=== PATIENT | female | born 1945 | race Caucasian/White ===

== ENCOUNTER → 2019-12-30 10:06 | Outpatient (BNVA) | payer MEDICARE, SELFPAY | PROVIDERS: Family Provider Nurse Practitioner Family; PCP Nurse Practitioner Family; Visit Provider Nurse Practitioner Family | DX: E11.9 Type 2 diabetes mellitus without complications (principal); E78.5 Hyperlipidemia, unspecified; I50.9 Heart failure, unspecified; I10 Essential (primary) hypertension; J06.9 Acute upper respiratory infection, unspecified | CPT/HCPCS: 80053; 80061; 84443; 85025 ==

== ENCOUNTER 2020-04-26 13:05 | Outpatient (CLI) | payer MEDICARE, SELFPAY ==
--- NOTE | 2020-04-26 14:15 | XR_ITS ---
WS: [id number] SCREENING DEXA SCAN [employer] CLINICAL INFORMATION: post menopausal COMPARISON: February 11, 2015 FINDINGS: The L1-L4 bone mineral density measures 0.825 g/cm2. This corresponds to a T score score of -3.0 and Z score of -1.8. Left femoral neck bone mineral density measures 0.697 g/cm2. This corresponds to a T score of -2.5 an d Z score of -1.2. Right femoral neck bone mineral density measures 0.671 g/cm2. This corresponds to a T score -2.7of an d Z score of -1.4. Mean femoral neck bone mineral density measures 0.684 g/cm2. This corresponds to a T score of -2.6 an d Z score of -1.3. XR/XR DEXA axial skeleton* 32135 IMPRESSION: Osteoporosis Patient's FRAX calculated 10 year probability for major osteoporotic fracture i s 34.9 % and osteoporotic hip fracture is 14.4%. Bone mineral density in the lumbar spine has decreased -3.6% and -1.2% in the f emoral necks since 2014.
== END 2020-04-26 13:06 | disposition home or self-care (01) ==
PROVIDERS: Family Provider Nurse Practitioner Family; PCP Nurse Practitioner Family; Visit Provider Nurse Practitioner
DX: Z78.0 Asymptomatic menopausal state (principal); M81.0 Age-related osteoporosis without current pathological fracture
CPT/HCPCS: 77080

== ENCOUNTER → 2020-05-06 11:47 | Outpatient (BNVA) | payer MEDICARE, SELFPAY | PROVIDERS: Family Provider Nurse Practitioner Family; PCP Nurse Practitioner Family; Visit Provider Nurse Practitioner Family | DX: E11.65 Type 2 diabetes mellitus with hyperglycemia (principal); Z79.899 Other long term (current) drug therapy; M06.9 Rheumatoid arthritis, unspecified; Z11.59 Encounter for screening for other viral diseases | CPT/HCPCS: 80053; 80076; 82565; 83036; 84443; 85025; 85651; 86140; 86704 ==

== ENCOUNTER → 2020-05-20 10:00 | Outpatient (BNVA) | payer MEDICARE, SELFPAY | PROVIDERS: Family Provider Nurse Practitioner Family; PCP Nurse Practitioner Family; Visit Provider Internal Medicine Rheumatology | DX: M05.79 Rheumatoid arthritis with rheumatoid factor of multiple sites without organ or systems involvement (principal); Z79.899 Other long term (current) drug therapy; M81.0 Age-related osteoporosis without current pathological fracture; Z79.52 Long term (current) use of systemic steroids | CPT/HCPCS: 99214 ==

== ENCOUNTER → 2020-09-01 09:57 | Outpatient (BNVA) | payer MEDICARE, SELFPAY | PROVIDERS: Family Provider Nurse Practitioner Family; PCP Nurse Practitioner Family; Visit Provider Nurse Practitioner Family | DX: I10 Essential (primary) hypertension (principal); I50.9 Heart failure, unspecified; M06.9 Rheumatoid arthritis, unspecified; E78.5 Hyperlipidemia, unspecified; E11.65 Type 2 diabetes mellitus with hyperglycemia; M25.561 Pain in right knee | CPT/HCPCS: 80053; 80061; 83036; 84443; 85025 ==

== ENCOUNTER → 2020-09-21 09:13 | Outpatient (BNVA) | payer MEDICARE, SELFPAY | PROVIDERS: Family Provider Nurse Practitioner Family; PCP Nurse Practitioner Family; Visit Provider Nurse Practitioner | DX: I10 Essential (primary) hypertension (principal); E87.6 Hypokalemia | CPT/HCPCS: 80048 ==

== ENCOUNTER → 2020-10-18 08:49 | Outpatient (BNVA) | payer MEDICARE, SELFPAY | PROVIDERS: Family Provider Nurse Practitioner Family; PCP Nurse Practitioner Family; Visit Provider Internal Medicine Rheumatology | DX: M05.79 Rheumatoid arthritis with rheumatoid factor of multiple sites without organ or systems involvement (principal); Z79.899 Other long term (current) drug therapy; M81.0 Age-related osteoporosis without current pathological fracture; Z79.52 Long term (current) use of systemic steroids | CPT/HCPCS: 99214 ==

== ENCOUNTER → 2020-12-13 09:18 | Outpatient (BNVA) | payer MEDICARE, SELFPAY | PROVIDERS: Family Provider Nurse Practitioner Family; PCP Nurse Practitioner Family; Visit Provider Nurse Practitioner Family | DX: E11.65 Type 2 diabetes mellitus with hyperglycemia (principal); E78.5 Hyperlipidemia, unspecified; I10 Essential (primary) hypertension; M06.9 Rheumatoid arthritis, unspecified | CPT/HCPCS: 80053; 80061; 83036; 84443; 85025 ==

== ENCOUNTER → 2021-01-31 08:09 | Outpatient (BNVA) | payer MEDICARE, SELFPAY | PROVIDERS: Family Provider Nurse Practitioner Family; PCP Nurse Practitioner Family; Visit Provider Internal Medicine Rheumatology | DX: Z79.899 Other long term (current) drug therapy (principal); M05.79 Rheumatoid arthritis with rheumatoid factor of multiple sites without organ or systems involvement | CPT/HCPCS: 36415; 80076; 82565; 85025; 86140 ==

== ENCOUNTER → 2021-02-08 08:45 | Outpatient (BNVA) | payer MEDICARE, SELFPAY | PROVIDERS: Family Provider Nurse Practitioner Family; PCP Nurse Practitioner Family; Visit Provider Internal Medicine Rheumatology | DX: M05.79 Rheumatoid arthritis with rheumatoid factor of multiple sites without organ or systems involvement (principal); Z79.899 Other long term (current) drug therapy; M81.0 Age-related osteoporosis without current pathological fracture | CPT/HCPCS: 99214 ==

== ENCOUNTER → 2021-03-11 08:51 | Outpatient (BNVA) | payer MEDICARE, SELFPAY | PROVIDERS: Family Provider Nurse Practitioner Family; PCP Nurse Practitioner Family; Visit Provider Nurse Practitioner Family | DX: E11.65 Type 2 diabetes mellitus with hyperglycemia (principal); E78.5 Hyperlipidemia, unspecified; I11.0 Hypertensive heart disease with heart failure; I50.9 Heart failure, unspecified; M06.9 Rheumatoid arthritis, unspecified | CPT/HCPCS: 80053; 80061; 83036; 84443; 85025 ==

== ENCOUNTER → 2021-03-30 08:41 | Outpatient (BNVA) | payer MEDICARE, SELFPAY | PROVIDERS: Family Provider Nurse Practitioner Family; PCP Nurse Practitioner Family; Visit Provider Nurse Practitioner Family | DX: I10 Essential (primary) hypertension (principal); E11.65 Type 2 diabetes mellitus with hyperglycemia; E78.5 Hyperlipidemia, unspecified | CPT/HCPCS: 80053; 85025 ==

== ENCOUNTER → 2021-05-24 08:36 | Outpatient (BNVA) | payer MEDICARE, SELFPAY | PROVIDERS: Family Provider Nurse Practitioner Family; PCP Nurse Practitioner Family; Visit Provider Internal Medicine Rheumatology | DX: M05.79 Rheumatoid arthritis with rheumatoid factor of multiple sites without organ or systems involvement (principal); Z79.899 Other long term (current) drug therapy; M81.0 Age-related osteoporosis without current pathological fracture; R05 Cough; Z71.89 Other specified counseling | CPT/HCPCS: 99214 ==

== ENCOUNTER → 2021-06-08 14:44 | Outpatient (BNVA) | payer MEDICARE, SELFPAY | PROVIDERS: Family Provider Nurse Practitioner Family; PCP Nurse Practitioner Family; Visit Provider Nurse Practitioner Family | DX: E11.65 Type 2 diabetes mellitus with hyperglycemia (principal); E78.5 Hyperlipidemia, unspecified; I10 Essential (primary) hypertension | CPT/HCPCS: 80053; 80061; 83036; 84443; 85025 ==

== ENCOUNTER → 2021-09-21 08:54 | Outpatient (BNVA) | payer MEDICARE, SELFPAY | PROVIDERS: Family Provider Nurse Practitioner Family; PCP Nurse Practitioner Family; Visit Provider Nurse Practitioner Family | DX: M05.79 Rheumatoid arthritis with rheumatoid factor of multiple sites without organ or systems involvement (principal); Z79.899 Other long term (current) drug therapy; E11.65 Type 2 diabetes mellitus with hyperglycemia; E78.5 Hyperlipidemia, unspecified | CPT/HCPCS: 80061; 80076; 82565; 83036; 84443; 85025; 86140 ==

== ENCOUNTER → 2021-11-09 08:38 | Outpatient (BNVA) | payer MEDICARE, SELFPAY | PROVIDERS: Family Provider Nurse Practitioner Family; PCP Nurse Practitioner Family; Visit Provider Internal Medicine Rheumatology | DX: M05.79 Rheumatoid arthritis with rheumatoid factor of multiple sites without organ or systems involvement (principal); Z79.899 Other long term (current) drug therapy; M81.0 Age-related osteoporosis without current pathological fracture; Z71.89 Other specified counseling | CPT/HCPCS: 99214 ==

== ENCOUNTER → 2021-11-25 09:05 | Outpatient (BNVA) | payer OTHER, SELFPAY | PROVIDERS: Family Provider Nurse Practitioner Family; PCP Nurse Practitioner Family; Visit Provider Nurse Practitioner Family | DX: E11.65 Type 2 diabetes mellitus with hyperglycemia (principal); E78.5 Hyperlipidemia, unspecified | CPT/HCPCS: 80053; 80061; 83036; 84443; 85025 ==

== ENCOUNTER → 2022-01-24 09:00 | Outpatient (BNVA) | payer OTHER, SELFPAY | PROVIDERS: Family Provider Nurse Practitioner Family; PCP Nurse Practitioner Family; Visit Provider Nurse Practitioner Family | DX: J40 Bronchitis, not specified as acute or chronic (principal); R05.9 Cough, unspecified | CPT/HCPCS: 71046 ==

== ENCOUNTER 2022-03-03 13:06 | Outpatient (CLI) | payer MEDICARE, SELFPAY ==
--- NOTE | 2022-03-03 13:32 | XR_ITS ---
WS: [id number] Left leg including the tibia and fibula, AP and lateral views, 03/03/2022 Clinical Data: M79.605 - Pain in left leg Comparison: None. Findings: No fractures or dislocations are seen. The tibia and fibula are intact. The soft tissues are normal. XR/XR tibia fibula LT 2V 10840 Impression: Negative for fracture.
--- NOTE | 2022-03-03 13:32 | XR_ITS ---
WS: [email or web address] Left hip, AP and frog-leg views, 03/03/2022 Clinical Data: M79.605 - Pain in left leg Comparison: None. Findings: No fractures or dislocations are seen. The left hip shows no erosion, narrowing, sclerosis or femoral head fragmentation. There is a small left acetabular lip.. The soft tissues are not remarkable. The adjacent pelvis is normal. XR/XR hip LT 2-3V wo/w pel* [id number] Impression: Mild osteoarthritis of the left hip. Tonnis classification: grade 1: sclerosis of femoral head and acetabulum or sli ght joint space narrowing or slight lipping at joint margins of the left hip.
--- NOTE | 2022-03-03 13:32 | XR_ITS ---
WS: [email or web address] Left ankle, 3 views, 03/03/2022 Clinical Data: M79.605 - Pain in left leg Comparison: None. Findings: No fractures or dislocations are seen. The ankle mortise is normal. The talus and calcaneus are unrem arkable. No soft tissue swelling over the medial or lateral malleolus is seen. There is a soft tissue calcification anterior to the distal left tibia which may be from a soft tissu e injury. There is a plantar spur and an Achilles spur. XR/XR ankle LT min 3V* [id number] Impression: Negative left ankle.
--- NOTE | 2022-03-03 13:32 | XR_ITS ---
WS: [email or web address] Left knee, 3 views, 03/03/2022 Clinical Data: M79.605 - Pain in left leg Comparison: None. Findings: No fractures or dislocations are seen. There is medial joint compartment narrowing with a small spur of the medial femoral condyle. There is an anterior superior spur of the left patella. The soft tissu es are unremarkable. XR/XR knee LT 3V* [id number] Impression: Mild osteoarthritis of the left knee. Kellgren-Andrew Classification: grade 2 (minimal): definite osteophytes and p ossible joint space narrowing
--- NOTE | 2022-03-03 13:32 | XR_ITS ---
WS: [email or web address] Left femur and thigh, AP and lateral views, 03/03/2022 Clinical Data: M79.605 - Pain in left leg Comparison: None. Findings: No fractures or dislocations are seen. The soft tissues are normal. The visualized knee shows left pa tellar spurs. XR/XR femur LT min 2V* [id number] Impression: Negative left femur and thigh.
== END 2022-03-03 13:07 | disposition home or self-care (01) ==
PROVIDERS: PCP Nurse Practitioner Family; Visit Provider Nurse Practitioner Family
DX: M79.605 Pain in left leg (principal); M25.572 Pain in left ankle and joints of left foot; M17.12 Unilateral primary osteoarthritis, left knee; M16.12 Unilateral primary osteoarthritis, left hip
CPT/HCPCS: 73502; 73552; 73562; 73590; 73610

== ENCOUNTER → 2022-05-04 12:40 | Outpatient (BNVA) | payer MEDICARE, SELFPAY | PROVIDERS: PCP Nurse Practitioner Family; Referring Provider Nurse Practitioner Family; Visit Provider Specialist | DX: M70.62 Trochanteric bursitis, left hip (principal); M16.12 Unilateral primary osteoarthritis, left hip | CPT/HCPCS: 73502; 99204 ==

== ENCOUNTER → 2022-05-09 08:27 | Outpatient (BNVA) | payer MEDICARE, SELFPAY | PROVIDERS: PCP Nurse Practitioner Family; Visit Provider Internal Medicine Rheumatology | DX: M05.79 Rheumatoid arthritis with rheumatoid factor of multiple sites without organ or systems involvement (principal); Z79.899 Other long term (current) drug therapy; M81.0 Age-related osteoporosis without current pathological fracture; Z71.89 Other specified counseling | CPT/HCPCS: 99214 ==

== ENCOUNTER → 2022-05-10 11:20 | Outpatient (BNVA) | payer MEDICARE, SELFPAY | PROVIDERS: PCP Nurse Practitioner Family; Visit Provider Nurse Practitioner | DX: R07.89 Other chest pain (principal); M48.54XA Collapsed vertebra, not elsewhere classified, thoracic region, initial encounter for fracture; J98.11 Atelectasis | CPT/HCPCS: 71046; 72072 ==

== ENCOUNTER 2022-05-19 06:00 | Outpatient (RCR) | payer MEDICARE, SELFPAY | END 2022-06-18 23:59 | disposition home or self-care (01) | LOC: APT 06:00 | PROVIDERS: PCP Nurse Practitioner Family; Referring Provider Specialist; Visit Provider Specialist | DX: M70.72 Other bursitis of hip, left hip (principal) | CPT/HCPCS: 97110; 97140; 97163 ==

== ENCOUNTER 2022-05-23 | Outpatient (CLI) | payer MEDICARE, SELFPAY | END 2022-05-23 23:59 | disposition home or self-care (01) | LOC: RAD 06-19 17:00 | PROVIDERS: PCP Nurse Practitioner Family; Visit Provider Nurse Practitioner | DX: E11.65 Type 2 diabetes mellitus with hyperglycemia (principal); E55.9 Vitamin D deficiency, unspecified; R53.83 Other fatigue | CPT/HCPCS: 80053; 80061; 82043; 82306; 82607; 83036; 85025 ==

== ENCOUNTER 2022-06-19 06:00 | Outpatient (RCR) | payer MEDICARE, SELFPAY | END 2022-07-19 23:59 | disposition home or self-care (01) | LOC: APT 06:00 | PROVIDERS: PCP Nurse Practitioner Family; Visit Provider Specialist | DX: M70.62 Trochanteric bursitis, left hip (principal) | CPT/HCPCS: 97110; 97140 ==

== ENCOUNTER → 2022-08-21 08:35 | Outpatient (BNVA) | payer MEDICARE, SELFPAY | PROVIDERS: PCP Nurse Practitioner; Visit Provider Nurse Practitioner | DX: E11.65 Type 2 diabetes mellitus with hyperglycemia (principal); E53.8 Deficiency of other specified B group vitamins | CPT/HCPCS: 80053; 80061; 82607; 83036 ==

== ENCOUNTER → 2022-09-04 09:38 | Outpatient (BNVA) | payer MEDICARE, SELFPAY | PROVIDERS: PCP Nurse Practitioner; Visit Provider Internal Medicine Rheumatology | DX: M05.79 Rheumatoid arthritis with rheumatoid factor of multiple sites without organ or systems involvement (principal); Z79.899 Other long term (current) drug therapy; Z71.89 Other specified counseling; M81.0 Age-related osteoporosis without current pathological fracture | CPT/HCPCS: 99214 ==

== ENCOUNTER → 2022-09-21 08:53 | Outpatient (BNVA) | payer MEDICARE, SELFPAY | PROVIDERS: PCP Nurse Practitioner; Visit Provider Nurse Practitioner | DX: E53.8 Deficiency of other specified B group vitamins (principal); M81.0 Age-related osteoporosis without current pathological fracture; I10 Essential (primary) hypertension; J98.01 Acute bronchospasm; M05.79 Rheumatoid arthritis with rheumatoid factor of multiple sites without organ or systems involvement; E78.5 Hyperlipidemia, unspecified; E55.9 Vitamin D deficiency, unspecified; I50.9 Heart failure, unspecified; J30.89 Other allergic rhinitis; M19.90 Unspecified osteoarthritis, unspecified site; E11.65 Type 2 diabetes mellitus with hyperglycemia; R05.3 Chronic cough; M79.18 Myalgia, other site; R05.9 Cough, unspecified | CPT/HCPCS: 87486; 87581; 87633 ==

== ENCOUNTER → 2022-10-30 08:08 | Outpatient (BNVA) | payer MEDICARE, SELFPAY | PROVIDERS: PCP Nurse Practitioner; Visit Provider Nurse Practitioner | DX: E53.8 Deficiency of other specified B group vitamins (principal) | CPT/HCPCS: 82607 ==

== ENCOUNTER → 2022-12-04 08:14 | Outpatient (BNVA) | payer MEDICARE, SELFPAY | PROVIDERS: PCP Nurse Practitioner; Visit Provider Nurse Practitioner | DX: Z79.899 Other long term (current) drug therapy (principal); E11.65 Type 2 diabetes mellitus with hyperglycemia; E55.9 Vitamin D deficiency, unspecified | CPT/HCPCS: 80053; 80061; 82306; 83036; 85025 ==

== ENCOUNTER → 2023-02-21 10:34 | Outpatient (BNVA) | payer MEDICARE, SELFPAY | PROVIDERS: PCP Nurse Practitioner; Visit Provider Internal Medicine Rheumatology | DX: M05.79 Rheumatoid arthritis with rheumatoid factor of multiple sites without organ or systems involvement (principal); Z79.899 Other long term (current) drug therapy; Z71.89 Other specified counseling; M81.0 Age-related osteoporosis without current pathological fracture | CPT/HCPCS: 99214 ==

== ENCOUNTER → 2023-03-02 10:15 | Outpatient (BNVA) | payer MEDICARE, SELFPAY | PROVIDERS: PCP Nurse Practitioner; Visit Provider Nurse Practitioner | DX: E53.8 Deficiency of other specified B group vitamins (principal); E11.65 Type 2 diabetes mellitus with hyperglycemia; M05.79 Rheumatoid arthritis with rheumatoid factor of multiple sites without organ or systems involvement; Z79.899 Other long term (current) drug therapy | CPT/HCPCS: 80048; 80076; 82565; 82607; 83036; 85025; 86140 ==

== ENCOUNTER → 2023-05-23 08:52 | Outpatient (BNVA) | payer MEDICARE, SELFPAY | PROVIDERS: PCP Nurse Practitioner; Visit Provider Nurse Practitioner | DX: E11.65 Type 2 diabetes mellitus with hyperglycemia (principal) | CPT/HCPCS: 80053; 80061; 82607; 83036; 83540; 85025 ==

== ENCOUNTER → 2023-05-30 10:03 | Outpatient (BNVA) | payer MEDICARE, SELFPAY | PROVIDERS: PCP Nurse Practitioner; Visit Provider Internal Medicine Rheumatology | DX: M05.79 Rheumatoid arthritis with rheumatoid factor of multiple sites without organ or systems involvement (principal); Z71.89 Other specified counseling; Z79.899 Other long term (current) drug therapy; M81.0 Age-related osteoporosis without current pathological fracture | CPT/HCPCS: 36415; 82728; 82746; 83540; 83550; 99214 ==

== ENCOUNTER → 2023-08-20 08:34 | Outpatient (BNVA) | payer MEDICARE, SELFPAY | PROVIDERS: PCP Nurse Practitioner; Visit Provider Nurse Practitioner | DX: M81.0 Age-related osteoporosis without current pathological fracture (principal); I10 Essential (primary) hypertension; J42 Unspecified chronic bronchitis; M05.79 Rheumatoid arthritis with rheumatoid factor of multiple sites without organ or systems involvement; E55.9 Vitamin D deficiency, unspecified; E53.8 Deficiency of other specified B group vitamins; E78.5 Hyperlipidemia, unspecified; I50.9 Heart failure, unspecified; E11.65 Type 2 diabetes mellitus with hyperglycemia; M19.90 Unspecified osteoarthritis, unspecified site | CPT/HCPCS: 80053; 83036; 85025 ==

== ENCOUNTER 2023-08-24 14:29 | Emergency (ER) | payer MEDICARE, SELFPAY ==
[2023-08-24 14:37] VITALS: BP 132/75; PULSE 70; RESP 16; TEMP 37.1; O2SAT 97; BMI 28.3
--- NOTE | 2023-08-24 14:42 | XR_ITS ---
WS: [email or web address] EXAMINATION: XR ankle RT min 3V* [id number] REASON FOR EXAM: trauma COMPARISON: None available. ORDER DATE: 08/24/2023 2:42 PM TECHNIQUE: 3 views of the right ankle were obtained. X-RAY FINDINGS: A cast has been placed and superimposes the bimalleolar fracture with some degree of displacement and comminution at each of the fracture sites. There is diffusely edema. IMPRESSION: Immobilized fractures of the right ankle.
--- NOTE | 2023-08-24 15:17 | W.ED.EXTPRO ---
HPI - Extremity Problem General: Chief complaint: Extremity Injury, Lower Stated complaint: right ankle injury Time Seen by Provider: 08/24/23 14:42 Source: patient Mode of arrival: wheelchair History of Present Illness: 78-year-old female presents emergency room with right ankle pain. Earlier this week she was seen in [place] after she stumbled that she had a bimalleolar right ankle fracture a stirrup and posterior splint combination were placed and wrapped with an Tacho wrap she has had increased swelling and has severe pain she has been using tramadol no further injury what had been noted no falls or other issues other than the swelling. She has been trying to elevate the leg. MD Complaint: extremity pain and joint pain Onset (ago): day(s) Pain Consistency: constant Location: right and lower extremity (Ankle) Quality: aching Radiation: distal Relieving factors: elevation and medication Exacerbating factors: nothing Associated symptoms: Deny arthralgias, chest pain, fever(s), myalgias, rash or short of breath Review of Systems Const: Denies: fever(s), chills, fatigue or malaise ENMT: Denies: throat pain, ear or mastoid pain, nasal discharge or nasal congestion Card: Denies: chest pain Resp: Denies: dyspnea, productive cough or non-productive cough GI: Denies: abdominal pain, nausea, vomiting, hematemesis, coffee ground emesis, diarrhea, constipation, bloating, hematochezia or melena : Denies: flank pain, difficulty voiding, dysuria, urinary frequency or urinary urgency Musc: Reports: extremity swelling, joint pain and joint swelling Skin/Breast: Denies: rash PFSH ED PFSH: Medical History Bronchitis CHF (congestive heart failure) Chronic bronchitis Controlled diabetes mellitus with hyperglycemia, without long-term current use of insulin Dyslipidemia Environmental and seasonal allergies High risk medication use Hypertension Immunization counseling Osteoarthritis Osteoporosis Post menopausal syndrome Rheumatoid arthritis Seropositive rheumatoid arthritis of multiple sites Seropositive rheumatoid arthritis of multiple sites Surgical History History of partial hysterectomy History of umbilical hernia repair May, S/P cholecystectomy Family History Mother Hypertension Cancer renal Social History Smoking and tobacco status: never smoked Second hand smoke exposure: Yes Smoking risk assessment/counseling performed?: No Alcohol intake: never Desire information about alcohol rehabilitation?: No Counseling given: No Substance/Drug Use: never Desire information about substance/drug rehabilitation?: No Counseling given: No Adopted: No Caregiver/support person: No Lives independently: Yes Housing: House Marital status: Number of children: 3 Highest education level completed: High School Graduate service: No Current occupational status: retired Pets and animals: Yes Do you think of yourself as: Straight/Heterosexual Current gender identity: Female Physical Exam Const: GENERAL APPEARANCE: cooperative and comfortable ORIENTATION/CONSCIOUSNESS: Yes awake, Yes oriented to person, Yes oriented to place and Yes oriented to time HENMT: COMMON NORMALS: normocephalic, atraumatic and hearing grossly normal bilaterally HEAD & SCALP: normocephalic and atraumatic Resp: COMMON NORMALS: normal respiratory effort, No retractions, No use of accessory muscles and clear to auscultation bilaterally AUSCULTATION: clear to auscultation bilaterally Cardio: COMMON NORMALS: regular rate, regular rhythm and No murmurs present (Cardio) RATE: regular rate RHYTHM: regular rhythm GI: COMMON NORMALS: Soft to palpation and No hepatosplenomegaly present AUSCULTATION: Yes normoactive bowel sounds PALPATION: Yes Soft to palpation, No Tenderness to palpation present (GI), No Guarding due to palpation present (GI) and Yes No hepatosplenomegaly present Extremity: OTHER: Significant swelling proximal to a posterior/stirrup splint on the right lower leg some bruising proximally. Sensation and distal pulses normal. Neuro: SENSORIUM/ORIENTATION: Yes oriented to person, Yes oriented to place and Yes oriented to time Skin: COMMON NORMALS: no rashes or lesions noted GENERAL SKIN EXAM: no rashes or lesions noted Course Vital Signs: Vital signs: Vital Signs Temperature 98.8 F 08/24/23 14:37 Pulse Rate 70 08/24/23 14:37 Respiratory Rate 16 08/24/23 14:37 Blood Pressure 132/75 08/24/23 14:37 Pulse Oximetry 97 08/24/23 14:37 Oxygen Delivery Me thod Room Air 08/24/23 14:37 MDM - Extremity (Nontraumatic) Medical Decision Making X-ray shows bimalleolar fracture with some displacement but is acceptable at this point there is no significant dislocation. Patient had good relief of his hip tubes horcu splint was removed. Splint was remade for her [place] wrapped again but not as tight. Give her hydrocodone for pain she has an appointment on Sunday which is in [address] Mondrgaon encouraged her to keep that that is reasonably soon and advised her even then they probably will not be able to do surgery for a time until the swelling begins to reduce. Recheck if she has worsening or change problems. We did do a venous duplex which was negative. Medical Records I reviewed the patient's medical records. Lab Data I reviewed the patient's lab results. All radiology interpretation(s) finalized by discharge Discharge Plan Discharge Patient Disposition: Home Clinical Impression: Bimalleolar fracture of right ankle Condition: Stable Prescriptions: New hydrocodone-acetaminophen 5-325 mg tablet 1 tab PO Q6H PRN (Reason: pain) Qty: 20 0RF Discontinued tramadol 50 mg tablet 50 mg PO TID PRN (Reason: pain) Qty: 90 2RF No Action (DME) Walker [id number] See Rx Instructions .Route .MEDSUPPLY Qty: 1 0RF Rx Instructions: weight 174# height 5'5 will need 99 months albuterol sulfate [ProAir HFA] 90 mcg/actuation HFA aerosol inhaler 2 puff INHALATION QID PRN (Reason: shortness of breath or wheezing) Qty: 6.7 2RF alendronate [Fosamax] 70 mg tablet 70 mg PO .Q7days Qty: 4 2RF carvedilol [Coreg] 3.125 mg tablet 1.562 mg PO BID 30 Days Qty: 30 2RF Rx Instructions: must administer with a meal/food celecoxib [Celebrex] 100 mg capsule 100 mg PO BID Qty: 60 2RF cyanocobalamin (vitamin B-12) 1,000 mcg/mL solution 1,000 mcg IM .monthly Qty: 1 2RF furosemide 20 mg tablet 20 mg PO BID 30 Days Qty: 60 2RF metformin 500 mg tablet 500 mg PO BID 30 Days Qty: 60 2RF prednisone 10 mg tablet See Rx Instructions .ROUTE .COMPLEX Qty: 30 1RF Dose Instruction: TAKE 1 TABLET BY MOUTH EVERY DAY FOR 3-5 DAYS NEEDED FOR joint pain flare. watch blood sugars Rx Instructions: TAKE 1 TABLET BY MOUTH EVERY DAY FOR 3-5 DAYS NEEDED FOR joint pain flare. watch blood sugars diclofenac sodium 1 % gel See Rx Instructions .ROUTE .COMPLEX Qty: 100 1RF Dose Instruction: apply TWO grams TO affected area FOUR TIMES DAILY NEEDED Rx Instructions: apply TWO grams TO affected area FOUR TIMES DAILY NEEDED potassium chloride 20 mEq Tablet Extended Release 20 meq PO QAM leflunomide 20 mg tablet 20 mg PO QAM amlodipine 10 mg tablet 10 mg PO QAM Diovan 320 mg tablet 320 mg PO QAM fluticasone propionate 50 mcg/actuation spray,suspension 1 spray intranasal BID PRN (Reason: Allergic Symptoms) Rx Instructions: administer into each nostril Tricor 145 mg tablet 145 mg PO QAM Symbicort 80-4.5 mcg/actuation HFA aerosol inhaler 2 puff inhalation BID PRN (Reason: Shortness Of Breath) cholecalciferol (vitamin D3) 50 mcg (2,000 unit) capsule 50 mcg PO QAM Rinvoq 15 mg tablet extended release 24 hr 15 mg PO QAM Discharge Orders: Discharge ED (Routine); Ordered 08/24/23 Ordered By: Henrique Ortiz Referrals: Ronni Noguera, [employer]PRESENT[employer]IVE[employer] [Primary Care Provider] - Discharge Diet: Usual diet Discharge Activity: Limit activity as instructed Patient Instructions: Ankle Fracture (ED), Opioid Safety, Pain Management Activity Restrictions/Additional Instructions: You are seen today for pain related to the swelling of your previous ankle fracture. We agree splinted your foot will allow clear bar and swelling. Keep the appointment with orthopedics/podiatry as previously scheduled try to elevate the foot is much as possible you can also use ice to help control swelling. Coding Level of Care Code ED Manager Media Relations for Amie No
--- NOTE | 2023-08-24 15:42 | USCV_ITS ---
Tawny Corcoran (Bushra) Age: 78 Gender: F : 1945 Exam Date: 08/24/2023 15:57 Ordering Phys: Henrique Ortiz DO Technologist: [place] [facility] [place]: PROCEDURES: Venous duplex imaging was performed in only the right lower extremity. The following venous structures were evaluated: common femoral vein, profunda vein, proximal portion of the greater saphenous vein, superficial femoral vein, and the popliteal vein. In addition, the posterior tibial and peroneal trunk were evaluated. CONCLUSIONS No evidence of right lower extremity DVT. Reynold Robertson MD (Electronically Signed) Final Date: 24 August 2023 16:24 S
== END 2023-08-24 17:03 | disposition home or self-care (01) ==
PROVIDERS: Emergency Provider Family Medicine; PCP Nurse Practitioner
DX: S82.841A Displaced bimalleolar fracture of right lower leg, initial encounter for closed fracture (principal); Z77.22 Contact with and (suspected) exposure to environmental tobacco smoke (acute) (chronic); I11.0 Hypertensive heart disease with heart failure; I50.9 Heart failure, unspecified; E11.9 Type 2 diabetes mellitus without complications; E78.5 Hyperlipidemia, unspecified; W01.0XXA Fall on same level from slipping, tripping and stumbling without subsequent striking against object, initial encounter; M79.89 Other specified soft tissue disorders
CPT/HCPCS: 73610; 93971; 99284

== ENCOUNTER → 2023-08-28 10:27 | Outpatient (BNVA) | payer MEDICARE, SELFPAY | PROVIDERS: PCP Nurse Practitioner; Visit Provider Podiatrist Foot & Ankle Surgery | DX: S82.841A Displaced bimalleolar fracture of right lower leg, initial encounter for closed fracture; M06.9 Rheumatoid arthritis, unspecified; I50.9 Heart failure, unspecified; E11.65 Type 2 diabetes mellitus with hyperglycemia; W01.0XXA Fall on same level from slipping, tripping and stumbling without subsequent striking against object, initial encounter; Z79.84 Long term (current) use of oral hypoglycemic drugs | CPT/HCPCS: 99204 ==

== ENCOUNTER → 2023-08-29 08:58 | Outpatient (BNVA) | payer MEDICARE, SELFPAY | PROVIDERS: PCP Nurse Practitioner; Visit Provider Internal Medicine Rheumatology | DX: M05.79 Rheumatoid arthritis with rheumatoid factor of multiple sites without organ or systems involvement (principal); Z79.899 Other long term (current) drug therapy; Z71.89 Other specified counseling; M81.0 Age-related osteoporosis without current pathological fracture | CPT/HCPCS: 99214 ==

== ENCOUNTER → 2023-09-03 14:29 | Outpatient (BNVA) | payer MEDICARE, SELFPAY | PROVIDERS: PCP Nurse Practitioner; Visit Provider Internal Medicine | DX: R07.9 Chest pain, unspecified (principal); I45.10 Unspecified right bundle-branch block; Z01.818 Encounter for other preprocedural examination; R01.1 Cardiac murmur, unspecified; I50.9 Heart failure, unspecified; I11.0 Hypertensive heart disease with heart failure; E78.5 Hyperlipidemia, unspecified; E11.9 Type 2 diabetes mellitus without complications; E11.65 Type 2 diabetes mellitus with hyperglycemia; I45.2 Bifascicular block | CPT/HCPCS: 93005; 99204 ==

== ENCOUNTER 2023-09-11 12:51 | Outpatient (CLI) | payer MEDICARE, SELFPAY ==
--- NOTE | 2023-09-11 13:30 | USCV_ITS ---
NiloTawny coyle (Bushra) Age: 78 Gender: F : 1945 Exam Date: 09/11/2023 13:24 Ordering Phys: Clinton Rutherford M.D ([email or web address]) Technologist: SEDRICK [place] [facility] [place]: MURMUR BP: 128 / 70 HR: 65 Rhythm: Sinus Technical Quality: Adequate MEASUREMENTS (Male / Female) Normal Values 2D ECHO LVOT Diameter 2.0 cm LV Ejection Fraction MOD 2C 69.0 % LV Ejection Fraction 2C AL 68.0 % LA Diameter 4.3 cm LA Width 4.2 cm LA Height 5.3 cm RA Width 4.3 cm RA Height 4.4 cm Aorta at Sinotubular Diameter 3.3 cm IVC Diameter 1.3 cm M-MODE Aortic Annulus Diameter 2.9 cm LA Ao Ratio MM 1.5 MV E Point Septal Separation 0.4 cm DOPPLER AV Peak Velocity 554.0 cm/s LVOT Peak Velocity 121.0 cm/s AV Area Cont Eq vti 0.7 cm squared AV Area Cont Eq pk 0.7 cm squared MV Peak Velocity 150.0 cm/s MV Area PHT 3.2 cm squared Mitral E to A Ratio 0.8 MV E' Velocity 62.0 cm/s Mitral E to MV E' Ratio 14.1 Mitral E to LV E' Lateral Ratio 11.4 Mitral E to LV E' Septal Ratio 18.7 TR Peak Velocity 333.0 cm/s TR Peak Gradient 44.4 mmHg TR Mean Velocity 240.6 cm/s TR Mean Gradient 26.1 mmHg TR Velocity Time Integral 133.3 cm TV Peak E Velocity 53.0 cm/s Right Atrial Pressure 3.0 mmHg Pulmonary Artery Systolic Pressu 47.4 mmHg PV Peak Velocity 204.0 cm/s RV Acceleration Time 0.1 s RV Ejection Time 0.4 s RV AcT/ET 0.2 FINDINGS Left Ventricle Left ventricle is normal in size. Moderate to severe left ventricular hypertrophy seen. LV systolic function is normal with EF of 60 to 65%. No regional wall motion abnormalities are seen. Grade 1 diastolic dysfunction Right Ventricle Normal in size and function Right Atrium Normal in size Left Atrium Severely dilated Mitral Valve Structurally normal mitral valve. Mild mitral regurgitation Aortic Valve Aortic valve is thickened and calcified. Severe aortic stenosis with aortic valve area of 0.67 cm2 and mean gradient across aortic valve of 55 mmHg. Tricuspid Valve Mild tricuspid regurgitation. RVSP is 45 to 50 mmHg. This is consistent with moderate pulmonary hypertension Pulmonic Valve Not well visualized Pericardium Normal Aorta Normal in size IVC Appears to be normal CONCLUSIONS LV systolic function is normal with EF of 60-65%. Grade 1 diastolic dysfunction Severely dilated left atrium Critical aortic stenosis with aortic valve area of 0.67cm2 and mean gradient across aortic valve of 55mmHg Mild tricuspid regurgitation Moderate pulmonary hypertension No comparison studies are available. Clinton Rutherford MD (Electronically Signed) Final Date: 11 September 2023 14:12 S
== END 2023-09-11 12:52 | disposition home or self-care (01) ==
PROVIDERS: PCP Nurse Practitioner; Visit Provider Internal Medicine
DX: R01.1 Cardiac murmur, unspecified (principal); I08.2 Rheumatic disorders of both aortic and tricuspid valves; I27.20 Pulmonary hypertension, unspecified
CPT/HCPCS: 93306

== ENCOUNTER → 2023-09-13 09:19 | Outpatient (BNVA) | payer MEDICARE, SELFPAY | PROVIDERS: PCP Nurse Practitioner; Visit Provider Podiatrist Foot & Ankle Surgery | DX: S82.841A Displaced bimalleolar fracture of right lower leg, initial encounter for closed fracture; M06.9 Rheumatoid arthritis, unspecified; I50.9 Heart failure, unspecified; E11.65 Type 2 diabetes mellitus with hyperglycemia; W01.0XXA Fall on same level from slipping, tripping and stumbling without subsequent striking against object, initial encounter; Z79.84 Long term (current) use of oral hypoglycemic drugs | CPT/HCPCS: 27808; 73610; 99213; 99215 ==

== ENCOUNTER 2023-09-18 08:36 | Outpatient (CLI) | payer MEDICARE, SELFPAY ==
[2023-09-18] VITALS (10 sets, daily range): BP systolic 109–195; BP diastolic 64–85; PULSE 66–87; RESP 13–24; TEMP 36.8; O2SAT 93–96; BMI 28.9
--- NOTE | 2023-09-18 09:00 | XACV_ITS ---
Ht: 165 cm Wt: 79 kg BSA: 1.92 m2 Gender: Female : 1945 Any Known Allergies: No known allergies Exam Priority: Routine Indication(s): - Severe aortic stenosis by Echo - Surgical clearance - Evaluation for possible valve surgery Procedure(s): Procedure Description: Diagnostic procedure Procedure Description: Left Heart Catheterization Procedure Description: Right Heart Catheterization Procedure Description: O2 saturation Procedure Description: Miscellaneous Procedure Description: ACT Procedure Description: Coronary Angiography Diagnostic Cath Status: Elective Diagnostic Findings * INDICATION: Critical aortic stenosis. * Left Main is very short. No significant disease.. * Left Anterior Descending has mild diffuse luminal irregularities.. * Circumflex has no significant disease. Gives rise to OM 1 that has proximal mild to moderate 30 to 40% stenosis.. * Right heart cath findings: Normal right and left sided cardiac pressures Mean RA pressure: 8 mmHg RV pressure: 42 / 0 / 8 mmHg PA pressure: 44/18/28 mmHg Mean PCW: 10 mmHg TP mmHg Cardiac output: 3.45 L/min PVR: 5.2 Wood units. Mild precapillary pulmonary hypertension . * Aortic valve study: Aortic valve area: 0.42 cm2 Mean gradient: 63 mmHg Critical aortic valve stenosis. * Proximal Right Coronary Artery: minimal 30% stenosis, CONNIE: 3 flow. * Coronary angiography shows right dominance. Conclusions 1. Nonobstructive coronary artery disease. 2. Critical aortic stenosis. 3. Normal right and left-sided cardiac pressures. 4. Mild precapillary pulmonary hypertension. Recommendations * Patient will be evaluated by heart valve clinic in [place] next week for valve replacement work up. * Outpatient cardiology follow up in 1-2 weeks. Pressures Phase:Rest AO : 151 / 86 ( 115 ) @ 12:07:00 PM / ( 0 ) @ 12:27:00 PM 197 / 82 ( 128 ) @ 12:27:00 PM 197 / 82 ( 127 ) @ 12:27:00 PM LV : 250 / -18 / 10 @ 12:27:00 PM 251 / -16 / 12 @ 12:27:00 PM RV : 42 / 0 / 9 @ 11:44:00 AM PA : 44 / 18 ( 28 ) @ 11:42:00 AM RA : a wave = 11 v wave = 9 mean = 8 @ 11:44:00 AM PCW : a wave = 13 v wave = 13 mean = 10 @ 11:42:00 AM O2 Content Phase:Rest PA : O2 Content O2: 64.9 @ 12:27:00 PM Saturations Phase:Rest AO : 94 @ 12:07:00 PM PA : 65 @ 12:27:00 PM Cardiac Output Phase:Rest Wendy : 3 @ 11:46:54 AM Wendy Cardiac Index: 2 @ 11:46:54 AM Flow Phase:Rest Qp : 3 @ 11:46:54 AM Qs : 3 @ 11:46:54 AM Valves Phase:DefaultPhase AV : 54.0 @ 11:46:54 AM 54.0 @ 11:46:54 AM AV Mean Gradient: 63.0 @ 11:46:54 AM 63.0 @ 11:46:54 AM AV Flow: 149 @ 11:46:54 AM AV Area: 0.4 @ 11:46:54 AM AV Area Index: 0.23 @ 11:46:54 AM Clinical Evaluation EBL: 5mL-10mL Procedural Details Procedure Consent Obtained. Pre-Procedure Time Out. Identified patient by full name and date of as verbalized by the patient/guarantor. Does the consent match the physician's order: Yes. Accurate & Complete Informed Consent: Yes. Inpatient/Outpatient History & Physical on Chart: Yes. If H&P is completed, is and addenduem needed: No; If yes, is the addendum complete: N/A. Visualize and Verify Site with Patient/Guarantor: N/A. Relevant Radiology Images available: N/A. The risks, benefits, and alternatives of sedation and/or procedure were discussed by physician. The patient agrees to continue. Admit Source: Out Patient. Physician notified. Physician arrived. Procedure started. [facility] Clinical Fraility Score: 4: Vulnerable. 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 Chest Pain Symptom Assessment: Atypical Angina. Cardiovascular Instability: No, stable. Correct patient, site and procedure confirmed by cath team. Current diagnosis: Chest Pain; Severe Aortic stenosis; Surgical Clearance. PERRLA. Strong, equal hand nursing resident bilaterally. Lungs clear x 5 lobes. IV Site on Arrival: 20 gauge in the left anticubital. IV Site on Arrival: 20 gauge in the right anticubital. IV Fluids: 0.9% NaCl at KVO. 0 mL infused prior to laboratory cureman. Pre Procedural Pulses: bilateral radial was 3+. Pre Procedural Pulses: left dorsalis pedis was 2+. Pre Procedural Pulses: left posterior tibial was 2+. Right lower extremity is casted; unable to assess lower pulses at this time. Oxygen started at 0liters/min via nasal canula; in preparation for RHC. right groin was prepped with chloroprep then draped in the usual sterile fashion. right radial was prepped with chloroprep then draped in the usual sterile fashion. right brachial was prepped with chloroprep then draped in the usual sterile fashion. Baseline sample Acquired. HR: 53 BPM. Physician scrubbed in. Immediate Pre-Procedure Time Out. Correct Patient: Yes; Correct Procedure: Yes; Correct Site: Yes; Correct Patient Position: Yes; Correct Supplies: Yes; Dried Flammable Prep: Yes; Blood Products Available: N/A;. Lidocaine 1% infiltrated to the right brachial. Guidewire access through the brachial venous access made by . Rozet-Justice MON catheter inserted. [place] wire inserted. Unable to advance swan. [place] wire removed. 0.25 swan wire inserted. Swant advance to RA postion. Rozet wire removed. Oximetry samples were obtained. Normal venous range: 60-85%. Normal arterial range: 95-100%. Pressure measurements obtained. ABG drawn and sent with respiratory therapy. Rozet-Justice out. Lidocaine 1% infiltrated to the right radial. Arterial access obtained. Nitro was given IA through the needle. Wire and needle out. MD Holding pressure. MD aborting radial attempt. Attempting to gain access in the right femoral approach. A Manual Compression was successful obtaining hemostatsis at the Right Brachial Vein insertion site. TR band placed to the needle radial access. 10 ml of air placed in the band. Both radial artery site and brachil vein site on the right side are hemostatic and free of s/s of hematoma at this time. Lidocaine 1% infiltrated to the right groin. Arterial access obtained with micropuncture set. Wire and needle out. MD holding pressure. Arterial access obtained with micropuncture set using ultrasound. ABG drawn and sent with respiratory therapy. A 5 [place]enezuel[place] JL4 catheter in over wire. Multiple views taken of left coronary artery. Oxygen started at 2liters/min via nasal canula. Multiple views taken of left coronary artery. Catheter removed over the exchange wire. A 5 v[place] JR4 catheter in over wire. Multiple views taken of right coronary artery. Catheter removed over the exchange wire. A 5 venezuel[place] AL1 catheter in over glide wire. Wire removed. Catheter aspirated and flushed by MD. Wire reinserted. Wire and catheter advanced across the Aortic Valve. Glidewire removed. Exchange wire inserted. AL 1 catheter removed over the wire. 6 fr rivka catheter inserted over the exchange wire. Exchange wire removed. Gradient taken: LV 251/-17,12; AO 197/82(127); Mean: 63mmHg, Peak to Peak: 54mmHg, SEP: 23sec/min; HR: 70 BPM; SpO2: 97%. [place] Catheter out over the wire. Physician review of cine films. ACT drawn. Results 153 seconds. Therapeutic limits - pre-heparin administration 90-150 seconds and monitoring heparin during a vascular procedure >250 seconds. Physican scrubbed out. A Suture was successful obtaining hemostatsis at the Right Femoral artery insertion site. Sheath(s) sutured into position with 2-0 silk and sterile 4x4's and Op-site applied over the site. No oozing or signs and symptoms of hematoma noted. Arterial sheath flushed and connected to tranducer and pressure bag with heparinized saline. Post Procedure: Pulses reassessed and unchanged. PERRLA. Strong, equal hand nursing resident bilaterally. No VTE prophylaxis required. Medication waste: Lidocaine-1 ml Nitro- 49.8 mg Versed- 1 mg Fentanyl- 75 mcg Hydralazine 10 mg. Vital chart was stopped. Total IV fluids: 50 mL. Fluoro: 138:00. Contrast type used: Omnipaque 300 mg/mL, 150 mL bottle. [id number]. Post-op diagnosis: Critical Aortic Stenosis. Complications: None. Estimated blood loss: 5mL-10mL. Responsiveness - Normal response to verbal stimuli; alert and oriented, PERRLA. Airway - Unaffected, no intervention required; spontaneous ventilation. Circulation: W/N/L, pulses unchanged. Nausea/Vomiting: No. Procedure completed. Patient transferred by bed to CPRU. Current Diagnosis : Chest Pain. Access Site Site: Right Brachial Vein Sheath Size: 6 Fr Hemostasis Method: Manual Compression Hemostasis Success: Successful Site: Right Femoral artery Sheath Size: 6 Fr Hemostasis Method: Suture Hemostasis Success: Successful Procedure Medications Start: 10:29 AM Stop: 10:29 AM Medication: Versed 1 mg and Fentanyl 25 mcg Amount: 1 Route: I.V. Start: 10:49 AM Stop: 10:49 AM Medication: Nitrogylcerin Amount: 200 mcg Route: I.A. Start: 11:15 AM Stop: 11:15 AM Medication: Heparin Amount: 2000 units Route: I.V. Start: 11:23 AM Stop: 11:23 AM Medication: Heparin Amount: 1000 units Route: I.V. Start: 11:35 AM Stop: 11:35 AM Medication: Hydralazine Amount: 10 mg Route: I.V. I, the attending physician, have reviewed and verified all procedure medications. Yes, all medications given per verbal order History/Risk Factors Hypertension: Yes Dyslipidemia: Yes Peripheral Arterial Disease (PAD): No Myocardial Infarction (IN): No Obesity: No Renal Disease: No Tobacco Use: Never Prior Interventions PCI: No CABG: No Valve Surgery: No Report Signatures Finalized by Clinton Rutherford MD on 09/19/2023 12:19 PM
[2023-09-18 09:22] LABS: Basophils % 0.6 %; Eosinophils # 0.1 10^3/uL (0.0-0.8); Eosinophils % 2.3 %; Hematocrit 37.7 % (36-47); Lymphocytes % 18.4 %; Mean Corpuscular HGB Conc 31.6 g/dL (30-55); Mean Corpuscular Hemoglobin 28.4 pg (27-33); Mean Platelet Volume 9.4 fL (7.4-10.4); Monocytes # 0.5 10^3/uL (0.2-0.9); Monocytes % 10.1 %; Neutrophils # 3.53 10^3/uL (1.8-7.7); Neutrophils % 67.5 %; Nucleated Red Blood Cells % 0 %; Platelet Count 300 10^3/cmm (157-399); Red Blood Count 4.19 10^6/uL (3.85-5.65); Red Cell Distribution Width 13.6 % (12.1-15.1); White Blood Count 5.23 10^3/uL (3.29-11.43)
[2023-09-18] MEDS: diphenhydrAMINE 50 mg Capsule PO (09:28)
[2023-09-18] MEDS: aspirin 325 mg Tablet PO (09:28)
[2023-09-18 09:47] LABS: INR 0.95 (0.8-1.2)
[2023-09-18 09:51] LABS: Anion Gap 12.4 (5-19); Blood Urea Nitrogen 21 mg/dL (8-23); Calcium 9.7 mg/dL (8.5-10.5); Carbon Dioxide 32 mmol/L (22-29); Chloride 99 mmol/L (98-107); Glucose 118 mg/dL (65-115); Osmolality Calculated 294 mOsm/kg (285-295); Potassium 3.4 mmol/L (3.5-5.1); Sodium 140 mmol/L (136-145)
--- NOTE | 2023-09-18 10:28 | W.PM.OPSUD ---
Surgery/Procedure H&P Update DATE OF PROCEDURE: September 18, 2023 DATE H&P PERFORMED: 09/13/23 H&P UPDATE INFORMATION: I have reviewed H&P completed within last 30 days, I have examined patient prior to procedure and No changes to prior documentation PREOP DIAGNOSIS: Severe aortic stenosis PRIMARY INDICATION FOR PROCEDURE: Severe aortic stenosis PLANNED PROCEDURE: Operation Date: 09/18/23 10:00 Proposed Procedures p [facility] 69993,R93.1,I35.0(Bilateral) - Clinton Rutherford M.D Possible percutaneous coronary intervention PATIENT REASSESSED PRIOR TO SEDATION, WITH NO CHANGE NOTED: Yes PHYSICAL EXAM: alert, oriented x 3, clear to auscultation bilaterally and regular rate & rhythm AIRWAY EVAL/ANESTHESIA PLAN: normal airway, ASA III, Local Anesthesia, Risks, benefits & alternatives of sedation and/or procedure discussed and Patient agrees to continue as planned ADDITIONAL INFORMATION: Moderate sedation
[2023-09-18 11:08] LABS: Alveolar-Arterial Oxygen Gradi 4.1 mmHg (5-10); Arterial Blood Gas Hematocrit 30.3 % (37-47); Blood Gas Operator Identificat AO; Blood Gas Sample Site Not specified; Blood Gas Sample Type Arterial; Carboxyhemoglobin 1.7 %THgb (0.4-20.1); Methemoglobin 0.7 % (0.4-1.5); Oxygen Device ROOM AIR; Total Hemoglobin 9.9 g/dL (12-16)
[2023-09-18 11:10] LABS: Arterial Blood Gas Hematocrit 11.1 % (37-47); Blood Gas Operator Identificat PA; Blood Gas Sample Site Not specified; Carboxyhemoglobin 1.9 %THgb (0.4-20.1); HGB O2 Sat 62.6 % (95-100); Methemoglobin 1.6 % (0.4-1.5); Oxygen Device ROOM AIR; Total Hemoglobin 3.6 g/dL (12-16)
[2023-09-18 11:22] LABS: Blood Gas Sample Type MixedVenous
--- NOTE | 2023-09-18 12:45 | PC.NURSE ---
Patient arrives to [facility] from [facility] at 1235 with a right radial TR-band and a right arterial sheath. No hematomas noted.
--- NOTE | 2023-09-18 16:13 | PC.NURSE ---
Patient has a right arterial sheath. The sheath was pulled at 1335. Hemostatis is obtained at 1335. Manual pressure is held x 20 minutes. Vitals are stable throughout. No hematoma is noted. A 4 x 4 and tegaderm dressing is applied. Right radial TR-band: 2ml's of air is removed at 1400, 2ml's of air is removed at 1504, 2ml's of air is removed at 1535, 2ml's of air is removed at 1600, 2ml's of air is removed at 1615. TR-band is removed at 1630 and a 2 x 2 and tegaderm dressing is applied. No hematoma is noted. Patient tolerated well.
== END 2023-09-18 19:36 | disposition home or self-care (01) ==
LOC: CCL 08:37 → CSU 12:28
PROVIDERS: PCP Nurse Practitioner; Visit Provider Internal Medicine
DX: I25.10 Atherosclerotic heart disease of native coronary artery without angina pectoris (principal); I27.20 Pulmonary hypertension, unspecified; I35.0 Nonrheumatic aortic (valve) stenosis; E78.5 Hyperlipidemia, unspecified; I11.0 Hypertensive heart disease with heart failure; I50.9 Heart failure, unspecified; E11.65 Type 2 diabetes mellitus with hyperglycemia; M81.0 Age-related osteoporosis without current pathological fracture; M06.9 Rheumatoid arthritis, unspecified; I07.1 Rheumatic tricuspid insufficiency
CPT/HCPCS: 36415; 80048; 82810; 85025; 85347; 85610; 93460; 96361; 96365; 99152; 99153; C1751; C1769; C1887; C1894; J0360; J1644; J2250; J3010; J3490; J7030; Q0163; Q9967

== ENCOUNTER → 2023-09-25 09:15 | Outpatient (BNVA) | payer MEDICARE, SELFPAY | PROVIDERS: PCP Nurse Practitioner; Visit Provider Podiatrist Foot & Ankle Surgery | DX: S82.841A Displaced bimalleolar fracture of right lower leg, initial encounter for closed fracture; W01.0XXA Fall on same level from slipping, tripping and stumbling without subsequent striking against object, initial encounter; M06.9 Rheumatoid arthritis, unspecified; I50.9 Heart failure, unspecified; E11.65 Type 2 diabetes mellitus with hyperglycemia; Z79.84 Long term (current) use of oral hypoglycemic drugs | CPT/HCPCS: 73610; 99213 ==

== ENCOUNTER → 2023-09-26 08:51 | Outpatient (BNVA) | payer MEDICARE, SELFPAY | PROVIDERS: PCP Nurse Practitioner; Visit Provider Nurse Practitioner Family | DX: I35.0 Nonrheumatic aortic (valve) stenosis (principal) | CPT/HCPCS: 36415; 80048; 99214 ==

== ENCOUNTER → 2023-10-04 08:59 | Outpatient (BNVA) | payer MEDICARE, SELFPAY | PROVIDERS: PCP Nurse Practitioner; Visit Provider Podiatrist Foot & Ankle Surgery | DX: S82.841A Displaced bimalleolar fracture of right lower leg, initial encounter for closed fracture; W01.0XXA Fall on same level from slipping, tripping and stumbling without subsequent striking against object, initial encounter; M06.9 Rheumatoid arthritis, unspecified; I50.9 Heart failure, unspecified; E11.65 Type 2 diabetes mellitus with hyperglycemia; Z79.84 Long term (current) use of oral hypoglycemic drugs; Z46.89 Encounter for fitting and adjustment of other specified devices; S82.401D Unspecified fracture of shaft of right fibula, subsequent encounter for closed fracture with routine healing; X58.XXXD Exposure to other specified factors, subsequent encounter | CPT/HCPCS: 73610; 97760; 99213; L4361 ==

== ENCOUNTER 2023-10-04 11:13 | Outpatient (CLI) | payer MEDICARE, SELFPAY | END 2023-10-04 11:14 | disposition home or self-care (01) | LOC: SPT 11:14 | PROVIDERS: PCP Nurse Practitioner; Visit Provider Podiatrist Foot & Ankle Surgery | DX: Z46.89 Encounter for fitting and adjustment of other specified devices (principal); S82.401D Unspecified fracture of shaft of right fibula, subsequent encounter for closed fracture with routine healing; X58.XXXD Exposure to other specified factors, subsequent encounter | CPT/HCPCS: 97760; 99213; L4361 ==

== ENCOUNTER → 2023-10-23 12:42 | Outpatient (BNVA) | payer MEDICARE, SELFPAY | PROVIDERS: PCP Nurse Practitioner; Visit Provider Nurse Practitioner Family | DX: Z95.0 Presence of cardiac pacemaker (principal); I11.0 Hypertensive heart disease with heart failure; I50.9 Heart failure, unspecified | CPT/HCPCS: 99214 ==

== ENCOUNTER → 2023-10-25 09:12 | Outpatient (BNVA) | payer MEDICARE, SELFPAY | PROVIDERS: PCP Nurse Practitioner; Visit Provider Podiatrist Foot & Ankle Surgery | DX: S82.841A Displaced bimalleolar fracture of right lower leg, initial encounter for closed fracture; W01.0XXA Fall on same level from slipping, tripping and stumbling without subsequent striking against object, initial encounter; M06.9 Rheumatoid arthritis, unspecified; I50.9 Heart failure, unspecified; E11.65 Type 2 diabetes mellitus with hyperglycemia; Z79.84 Long term (current) use of oral hypoglycemic drugs | CPT/HCPCS: 73610; 99213 ==

== ENCOUNTER 2023-10-29 14:46 | Outpatient (CLI) | payer MEDICARE, SELFPAY ==
--- NOTE | 2023-10-29 15:15 | USCV_ITS ---
Nilo Tawny (Bushra) Age: 78 Gender: F : 1945 Exam Date: 10/29/2023 15:05 Ordering Phys: Clinton Rutherford M.D ([email or web address]) Technologist: CT [place] [facility] [place]: tavr BP: 127 / 72 HR: 59 Rhythm: Sinus Technical Quality: Adequate MEASUREMENTS (Male / Female) Normal Values 2D ECHO LVOT Diameter 2.0 cm LV Ejection Fraction MOD 2C 55.4 % LV Ejection Fraction 2C AL 57.5 % LA Diameter 4.7 cm M-MODE MV E Point Septal Separation 0.6 cm DOPPLER AV Peak Velocity 160.0 cm/s LVOT Peak Velocity 116.0 cm/s AV Area Cont Eq vti 2.6 cm squared AV Area Cont Eq pk 2.4 cm squared MV E' Velocity 7.0 cm/s TR Peak Velocity 244.3 cm/s TR Peak Gradient 23.9 mmHg TV Peak E Velocity 72.0 cm/s Right Atrial Pressure 3.0 mmHg Pulmonary Artery Systolic Pressu 26.9 mmHg PV Peak Velocity 157.0 cm/s FINDINGS Left Ventricle Left ventricle is normal in size. LV systolic function is normal with EF of 55 to 60%. No regional wall motion abnormalities are seen. Grade 1 diastolic dysfunction. Right Ventricle Normal in size and function Right Atrium Normal in size. Pacemaker lead is seen Left Atrium Dilated Mitral Valve Structurally normal mitral valve. Mild mitral regurgitation. Aortic Valve Bioprosthetic aortic valve. No significant stenosis or regurgitation. Mean gradient across the aortic valve 6 mmHg. Tricuspid Valve Mild tricuspid regurgitation. Pulmonary artery systolic pressure is normal. Pulmonic Valve Not well-visualized Pericardium Normal Aorta Normal in size IVC Appears to be normal CONCLUSIONS LV systolic function is normal with EF of 55 to 60%. Grade 1 diastolic dysfunction Pacemaker lead is seen. Left atrial dilation Mild mitral regurgitation Bioprosthetic aortic valve seen. No significant stenosis or regurgitation Mild tricuspid regurgitation Compared to prior echocardiogram from 09/11/2023, patient has bioprosthetic aortic valve now with no significant stenosis across aortic valve. Clinton Rutherford MD (Electronically Signed) Final Date: 31 October 2023 10:18 S
== END 2023-10-29 14:47 | disposition home or self-care (01) ==
LOC: RAD 14:47
PROVIDERS: PCP Nurse Practitioner; Visit Provider Internal Medicine
DX: Z95.3 Presence of xenogenic heart valve (principal); Z95.2 Presence of prosthetic heart valve; I08.1 Rheumatic disorders of both mitral and tricuspid valves
CPT/HCPCS: 93306

== ENCOUNTER → 2023-11-08 09:11 | Outpatient (BNVA) | payer MEDICARE, SELFPAY | PROVIDERS: PCP Nurse Practitioner; Visit Provider Podiatrist Foot & Ankle Surgery | DX: S82.841A Displaced bimalleolar fracture of right lower leg, initial encounter for closed fracture; M06.9 Rheumatoid arthritis, unspecified; I50.9 Heart failure, unspecified; E11.65 Type 2 diabetes mellitus with hyperglycemia; Z79.84 Long term (current) use of oral hypoglycemic drugs; W01.0XXA Fall on same level from slipping, tripping and stumbling without subsequent striking against object, initial encounter | CPT/HCPCS: 73610; 99213 ==

== ENCOUNTER 2023-11-15 12:43 | Emergency (ER) | payer MEDICARE, SELFPAY ==
[2023-11-15 12:56] VITALS: BP 139/66; PULSE 60; TEMP 36.6; O2SAT 94; BMI 30.2
--- NOTE | 2023-11-15 13:05 | ECG_ITS ---
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 Measurements Intervals [place] Rate: 60 P: 166 VT: 194 QRS: -32 QRSD: 165 T: 90 QT: 476 QTc: 476 Interpretive Statements ELECTRONIC ATRIAL PACEMAKER LEFT AXIS DEVIATION [QRS AXIS < -30] RIGHT BUNDLE BRANCH BLOCK [120+ ms QRS DURATION, UPRIGHT V1, 40+ ms S IN I/aVL/V4/V5/V6] MODERATE T-WAVE ABNORMALITY, CONSIDER LATERAL ISCHEMIA [-0.1+ mV T-WAVE IN I/aVL/V5/V6] Compared to ECG 09/03/2023 14:39:22 Left-axis deviation now present T-wave abnormality now present Possible ischemia now present Sinus rhythm no longer present Left anterior fascicular block no longer present Left ventricular hypertrophy no longer present ST (T wave) deviation no longer present Electronically Signed On 11-15-2023 13:28:34 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 [id number]
--- NOTE | 2023-11-15 13:08 | XRR_ITS ---
PROCEDURE INFORMATION: Exam: XR Chest Exam date and time: 11/15/2023 1:26 PM Age: 78 years old Clinical indication: Pain; Angina pectoris; Additional info: Cp TECHNIQUE: Imaging protocol: Radiologic exam of the chest. Views: 1 view. COMPARISON: CR XR chest 2V* [id number] 05/10/2022 11:20 AM FINDINGS: Tubes, catheters and devices: Dual-chamber pacemaker in place. Lungs: Unremarkable. No consolidation. Pleural spaces: Unremarkable. No pleural effusion. No pneumothorax. Heart/Mediastinum: Transcatheter aortic valve replacement. Bones/joints: Unremarkable. XR/XR chest 1V portable [id number] IMPRESSION: No acute findings.
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
== END 2023-11-15 14:20 | disposition home or self-care (01) ==
PROVIDERS: Emergency Provider Nurse Practitioner Family; PCP Nurse Practitioner
DX: S29.011A Strain of muscle and tendon of front wall of thorax, initial encounter (principal); Z79.84 Long term (current) use of oral hypoglycemic drugs; Z77.22 Contact with and (suspected) exposure to environmental tobacco smoke (acute) (chronic); Z95.0 Presence of cardiac pacemaker; E11.9 Type 2 diabetes mellitus without complications; I11.0 Hypertensive heart disease with heart failure; I50.9 Heart failure, unspecified; E78.5 Hyperlipidemia, unspecified; V49.20XA Unspecified car occupant injured in collision with unspecified motor vehicles in nontraffic accident, initial encounter
CPT/HCPCS: 71045; 93005; 99284

== ENCOUNTER → 2023-11-20 13:31 | Outpatient (BNVA) | payer MEDICARE, SELFPAY | PROVIDERS: PCP Nurse Practitioner; Visit Provider Nurse Practitioner | DX: E11.65 Type 2 diabetes mellitus with hyperglycemia (principal) | CPT/HCPCS: 80053; 83036; 85025 ==

== ENCOUNTER → 2023-11-22 08:32 | Outpatient (BNVA) | payer MEDICARE, SELFPAY | PROVIDERS: PCP Nurse Practitioner; Visit Provider Podiatrist Foot & Ankle Surgery | DX: S82.401A Unspecified fracture of shaft of right fibula, initial encounter for closed fracture (principal); S82.841A Displaced bimalleolar fracture of right lower leg, initial encounter for closed fracture; W01.0XXA Fall on same level from slipping, tripping and stumbling without subsequent striking against object, initial encounter; M06.9 Rheumatoid arthritis, unspecified; I50.9 Heart failure, unspecified; E11.65 Type 2 diabetes mellitus with hyperglycemia; Z79.84 Long term (current) use of oral hypoglycemic drugs | CPT/HCPCS: 73610; 99213 ==

== ENCOUNTER → 2023-12-06 08:35 | Outpatient (BNVA) | payer MEDICARE, SELFPAY | PROVIDERS: PCP Nurse Practitioner; Visit Provider Podiatrist Foot & Ankle Surgery | DX: S82.841A Displaced bimalleolar fracture of right lower leg, initial encounter for closed fracture; W01.0XXA Fall on same level from slipping, tripping and stumbling without subsequent striking against object, initial encounter; M06.9 Rheumatoid arthritis, unspecified; I50.9 Heart failure, unspecified; E11.65 Type 2 diabetes mellitus with hyperglycemia; Z79.84 Long term (current) use of oral hypoglycemic drugs; Z46.89 Encounter for fitting and adjustment of other specified devices; S82.401D Unspecified fracture of shaft of right fibula, subsequent encounter for closed fracture with routine healing; X58.XXXD Exposure to other specified factors, subsequent encounter | CPT/HCPCS: 73610; 97760; 99213; L1902 ==

== ENCOUNTER 2023-12-06 11:06 | Outpatient (CLI) | payer MEDICARE, SELFPAY | END 2023-12-06 11:07 | disposition home or self-care (01) | LOC: SPT 11:07 | PROVIDERS: PCP Nurse Practitioner; Visit Provider Podiatrist Foot & Ankle Surgery | DX: Z46.89 Encounter for fitting and adjustment of other specified devices (principal); S82.401D Unspecified fracture of shaft of right fibula, subsequent encounter for closed fracture with routine healing; X58.XXXD Exposure to other specified factors, subsequent encounter | CPT/HCPCS: 97760; L1902 ==

== ENCOUNTER → 2023-12-12 08:40 | Outpatient (BNVA) | payer MEDICARE, SELFPAY | PROVIDERS: PCP Nurse Practitioner; Visit Provider Nurse Practitioner | DX: D50.9 Iron deficiency anemia, unspecified (principal) | CPT/HCPCS: 82607; 83550 ==

== ENCOUNTER → 2024-01-09 08:45 | Outpatient (BNVA) | payer MEDICARE, SELFPAY | PROVIDERS: PCP Nurse Practitioner; Visit Provider Internal Medicine Rheumatology | DX: Z79.899 Other long term (current) drug therapy (principal); M05.79 Rheumatoid arthritis with rheumatoid factor of multiple sites without organ or systems involvement; Z71.89 Other specified counseling; M81.0 Age-related osteoporosis without current pathological fracture | CPT/HCPCS: 99214 ==

== ENCOUNTER → 2024-03-17 08:27 | Outpatient (BNVA) | payer MEDICARE, SELFPAY | PROVIDERS: PCP Nurse Practitioner; Visit Provider Nurse Practitioner | DX: I50.9 Heart failure, unspecified (principal); E11.65 Type 2 diabetes mellitus with hyperglycemia; E53.8 Deficiency of other specified B group vitamins | CPT/HCPCS: 80053; 80061; 82043; 82607; 83036 ==

== ENCOUNTER → 2024-03-25 14:04 | Outpatient (BNVA) | payer MEDICARE, SELFPAY | PROVIDERS: PCP Nurse Practitioner; Visit Provider Internal Medicine | DX: I35.0 Nonrheumatic aortic (valve) stenosis (principal); R01.1 Cardiac murmur, unspecified; I11.0 Hypertensive heart disease with heart failure; I50.9 Heart failure, unspecified; E78.5 Hyperlipidemia, unspecified; E11.65 Type 2 diabetes mellitus with hyperglycemia; Z79.84 Long term (current) use of oral hypoglycemic drugs | CPT/HCPCS: 99214 ==

== ENCOUNTER → 2024-06-04 09:09 | Outpatient (BNVA) | payer MEDICARE, SELFPAY | PROVIDERS: PCP Nurse Practitioner; Visit Provider Internal Medicine Rheumatology | DX: M05.79 Rheumatoid arthritis with rheumatoid factor of multiple sites without organ or systems involvement (principal); M81.0 Age-related osteoporosis without current pathological fracture; Z79.899 Other long term (current) drug therapy; Z71.85 Encounter for immunization safety counseling | CPT/HCPCS: 71100; 99214 ==

== ENCOUNTER → 2024-07-22 16:52 | Outpatient (BNVA) | payer MEDICARE, SELFPAY | PROVIDERS: PCP Nurse Practitioner; Visit Provider Nurse Practitioner | DX: R05.9 Cough, unspecified (principal) | CPT/HCPCS: 87400; 87426 ==

== ENCOUNTER → 2024-09-15 13:20 | Outpatient (BNVA) | payer MEDICARE, SELFPAY | PROVIDERS: PCP Nurse Practitioner; Visit Provider Nurse Practitioner | DX: E55.9 Vitamin D deficiency, unspecified (principal); I10 Essential (primary) hypertension; E78.5 Hyperlipidemia, unspecified; E11.65 Type 2 diabetes mellitus with hyperglycemia; E53.8 Deficiency of other specified B group vitamins | CPT/HCPCS: 80053; 80061; 82306; 82607; 83036; 84443 ==

== ENCOUNTER → 2024-09-23 13:15 | Outpatient (BNVA) | payer MEDICARE, SELFPAY | PROVIDERS: PCP Nurse Practitioner; Referring Provider Nurse Practitioner; Visit Provider Physician Assistant | DX: S52.502A Unspecified fracture of the lower end of left radius, initial encounter for closed fracture; W10.2XXA Fall (on)(from) incline, initial encounter; Z46.89 Encounter for fitting and adjustment of other specified devices; S52.592D Other fractures of lower end of left radius, subsequent encounter for closed fracture with routine healing; X58.XXXD Exposure to other specified factors, subsequent encounter | CPT/HCPCS: 73110 ==

== ENCOUNTER 2024-09-23 15:41 | Outpatient (CLI) | payer MEDICARE, SELFPAY | END 2024-09-23 15:42 | disposition home or self-care (01) | LOC: SPT 15:42 | PROVIDERS: PCP Nurse Practitioner; Visit Provider Physician Assistant | DX: Z46.89 Encounter for fitting and adjustment of other specified devices (principal); S52.592D Other fractures of lower end of left radius, subsequent encounter for closed fracture with routine healing; X58.XXXD Exposure to other specified factors, subsequent encounter | CPT/HCPCS: 99204; L3908 ==

== ENCOUNTER → 2024-09-30 08:52 | Outpatient (BNVA) | payer MEDICARE, SELFPAY | PROVIDERS: PCP Nurse Practitioner; Visit Provider Nurse Practitioner Family | DX: I48.91 Unspecified atrial fibrillation (principal); Z95.0 Presence of cardiac pacemaker; I10 Essential (primary) hypertension; E78.5 Hyperlipidemia, unspecified | CPT/HCPCS: 81000; 99214 ==

== ENCOUNTER 2024-10-02 07:38 | Day surgery (SDC) | payer MEDICARE, SELFPAY ==
[2024-10-02] VITALS (11 sets, daily range): BP systolic 134–162; BP diastolic 60–82; PULSE 60–77; RESP 14–16; TEMP 36.4–36.6; O2SAT 91–98; BMI 30.7
--- NOTE | 2024-10-02 | XR_ITS ---
WS: [id number] Exam: XR wrist LT 2V [id number] Date/Time of Exam: 10/02/2024 12:00 AM Reason For Exam: ASHLEIGH PICS Intraoperative C-arm images of the LEFT wrist are submitted. Images depict volar plate and screw fixation of a fracture of the distal radius. Fracture alignment i s anatomic for healing.
[2024-10-02] MEDS: acetaminophen 1,000 MG/100 ML PIGGYBACK 400 MG IV (08:52)
[2024-10-02] MEDS: sodium chloride 0.9% 1,000 ML 30 ML IV (09:02)
[2024-10-02] MEDS: ketorolac 30 mg/mL INJ IVP (09:03)
--- NOTE | 2024-10-02 09:16 | P.ANESASSM_ITS ---
Pre-Anesthetic Assessment Height/Weight: Height 5 ft 5 in Weight 185 lb Temp Pulse Resp BP Pulse Ox O2 Del Method 97.7 F 60 16 148/71 95 Room Air 10/02/24 08:08 10/02/24 08:08 10/02/24 08:08 10/02/24 08:08 10/02/24 08:08 10/02/24 08:14 Preop Diagnosis: Carpal tunnel Operation Date: 10/02/24 10:30 Proposed Procedures p ORIF Wrist ORIF Distal Radius(Left) - Gregorio Metcalfe, DO Was Beta Guerita taken within 24 hours: N/A Was Clonidine taken within 24 hours: N/A Last intake: Intake Last Liquid Date 10/01/24 Last Liquid Time 22:00 Last Solid Date 10/01/24 Last Solid Time 22:00 Social No alcohol and No tobacco Exam alert, oriented x 3, clear to auscultation bilaterally and regular rate & rhythm Airway Submandibular: within normal limits Cervical ROM: within normal limits Mallampati: Class III Dentition: other (edentulous) Anesthetic Plan ASA status: 3 Anesthesia: General and Regional (specify below) Other: No prior issues with anesthesia NPO since yesterday Patient denies lung problems but does use occasional albuterol History of hypertension on carvedilol and valsartan. BB taken today Patient has a prior aortic valve replacement approximately [address] in place. Recently checked on 08/15/2024. Atrial paced 28% Labs 09/15/2024 reviewed Type 2 diabetes on metformin Patient does take prednisone 10 mg daily for arthritis. Taken this a.m. will still plan on giving Decadron IntraOp Plan for general anesthesia with preop nerve block Medications/Allergies Home Medications Medication Instructions Recorded Confirmed Last Taken Type Walker E0143 #1 ea 08/23/23 09/30/24 Unknown Rx aspirin 81 mg tablet,delayed 81 mg PO DAILY 11/20/23 10/01/24 09/24/24 History release (Adult Aspirin Regimen) leflunomide 20 mg tablet 20 mg PO QAM #90 tabs 06/04/24 10/01/24 10/01/24 Rx upadacitinib 15 mg tablet,extended 15 mg PO DAILY #30 tabs 06/04/24 10/01/24 09/24/24 Rx release 24 hr tramadol 50 mg tablet 50 mg PO BID PRN pain #60 tabs 06/16/24 10/02/24 10/02/24 Rx diclofenac sodium 1 % topical gel See Rx Instructions .Route 07/10/24 10/01/24 Unknown Rx (Arthritis Pain (diclofenac)) .COMPLEX #100 grams Disposable nebulizer circuit #1 ea 07/22/24 09/30/24 Unknown Rx albuterol sulfate 2.5 mg/3 mL 2.5 mg (3 mL) inhalation Q4H PRN 07/22/24 10/01/24 Unknown Rx (0.083 %) solution for nebulization shortness of breath or wheezing #75 mL albuterol sulfate 90 mcg/actuation 2 puff inhalation QID PRN 09/15/24 10/01/24 Unknown Rx aerosol inhaler shortness of breath or wheezing #6.7 grams amlodipine 10 mg tablet 10 mg PO .at night #30 tabs 09/15/24 10/01/24 10/02/24 Rx carvedilol 3.125 mg tablet 3.125 mg PO BID #60 tabs 09/15/24 10/01/24 10/02/24 Rx celecoxib 100 mg capsule 100 mg PO BID #60 caps 09/15/24 10/01/24 09/24/24 Rx cholecalciferol (vitamin D3) 50 50 mcg PO QAM #30 caps 09/15/24 10/01/24 10/02/24 Rx mcg (2,000 unit) capsule cyanocobalamin (vitamin B-12) 1,000 mcg IM .monthly #1 mL 09/15/24 10/01/24 Unknown Rx 1,000 mcg/mL injection solution furosemide 20 mg tablet 20 mg PO BID PRN swelling #60 tabs 09/15/24 10/01/24 10/02/24 Rx metformin 500 mg tablet 500 mg PO BID 30 days #60 tabs 09/15/24 10/01/24 10/01/24 Rx potassium chloride 20 mEq 20 meq PO QAM #30 tabs 09/15/24 10/01/24 Unknown Rx tablet,extended release valsartan 320 mg tablet (Diovan) 320 mg PO QAM #30 tabs 09/15/24 10/01/24 10/01/24 Rx left wrist cockup splint #1 ea 11/05/24 11/12/24 Unknown Rx prednisone 10 mg tablet See Rx Instructions .Route 10/01/24 10/01/24 10/02/24 Rx .COMPLEX #30 tabs Allergies Allergy/AdvReac Type Severity Reaction Status Date / Time No Known Allergies Allergy Verified 09/30/24 09:00 Current Medications Generic Name Dose Route Start Last Admin Trade Name Nghia PRN Reason Stop Dose Admin Sodium Chloride 1,000 mls @ 30 mls/hr 10/02/24 08:00 10/02/24 09:02 Sodium Chloride 0.9% IV 10/03/24 07:59 30 mls/hr .Q24H JORGE Administration PFSH Anesthesia Medical History (Updated 09/30/24 @ 09:23 by MAYCOL Hector) Pacemaker [place] [employer] dual chamber implant 10/10/23 Chronic bronchitis Osteoarthritis Environmental and seasonal allergies Bronchitis Seropositive rheumatoid arthritis of multiple sites Osteoporosis Immunization counseling High risk medication use Seropositive rheumatoid arthritis of multiple sites Post menopausal syndrome Controlled diabetes mellitus with hyperglycemia, without long-term current use of insulin CHF (congestive heart failure) Rheumatoid arthritis Hypertension Dyslipidemia Surgical History (Updated 09/30/24 @ 09:23 by MAYCOL Hector) S/p TAVR (transcatheter aortic valve replacement), bioprosthetic S/P cholecystectomy History of partial hysterectomy History of umbilical hernia repair May, Family History Mother Hypertension Cancer renal Social History Smoking and tobacco/nicotine status: never used tobacco/nicotine Second hand smoke exposure: Yes Alcohol intake: never Substance/Drug Use: never Adopted: No Caregiver/support person: No Lives independently: Yes Housing: House Marital status: Number of children: 3 Highest education level completed: High School Graduate service: No Current occupational status: retired Pets and animals: Yes Do you think of yourself as: Straight/Heterosexual Current gender identity: Female Data Anesthesia Cardiac Studies: Echocardiogram 10/29/23
--- NOTE | 2024-10-02 09:40 | W.PM.OPSUD ---
Surgery/Procedure H&P Update DATE OF PROCEDURE: October 02, 2024 DATE H&P PERFORMED: 09/23/24 H&P UPDATE INFORMATION: I have reviewed H&P completed within last 30 days, I have examined patient prior to procedure and No changes to prior documentation PREOP DIAGNOSIS: Left distal radius fracture PRIMARY INDICATION FOR PROCEDURE: Left distal radius fracture displaced and angulated PLANNED PROCEDURE: Operation Date: 10/02/24 10:30 Proposed Procedures p ORIF Wrist ORIF Distal Radius(Left) - Gregorio Corona DO
--- NOTE | 2024-10-02 09:45 | ANES.PROC ---
Anesthesia Procedures Procedure/Date: 10/02/24 Nerve Block ^: Nerve Block 1: Main Anesthesia: other (fentanyl 100mcg) Time Out Performed: Yes Consent: requested by attending/covering physician and from patient Nerve block location: supraclavicular Anesthesia monitors applied: pulse oximetry, EKG, BP cuff and oxygen Nerve block position: supine Anesthetic Used: ropivicaine 0.5% Amount of anesthesia used (mL): 30 Ultrasound used to: recognize landmarks Nerve Stimulator Used?: Yes Interscalene/Femoral BLK: other needle (pjunk 4inch) Injection: neg aspiration of heme Patient Tolerated Procedure: well Complications: none
--- NOTE | 2024-10-02 09:58 | SUR.PREOP ---
LEFT SUPERCLAVICULAR NERVE BLOCK PERFORMED BY Marcy. PT ON KILN DOOR BUILDER SHOWING PACED RHYTHM AT 60 BPM. PT ON O2 VIA NASAL CANNULA AT 2L/M. 28ml OF 0.5% ROPIVACAINE. PT TOLERATED PROCEDURE WELL.
[2024-10-02] MEDS: ceFAZolin 2,000 MG in sodium chloride 0.9% (plus) 50 ML 100 MG IV (10:08)
--- NOTE | 2024-10-02 11:29 | W.PM.BPON ---
Date of Procedure: 10/02/2024 Surgeon: Gregorio Corona DO Bottom Cementer(s): None Procedure(s) performed: Left distal radius open reduction internal fixation (4 part intra-articular) Findings of the procedure(s): Patient was found to have comminuted dorsal angulation 4 part intra-articular left distal radius fracture underwent procedure as planned without issues or complications. Placed in a volar splint will leave this on in place until 2 weeks nonweightbearing to the left upper extremity. Patient family understand agree with current plan. Questions answered. Estimated blood loss: 5 mL Specimen(s) removed: None Post-operative diagnosis: Left distal radius fracture
--- NOTE | 2024-10-02 11:31 | P.OP_ITS ---
Operative Report Date of procedure: October 02, 2024 Surgeon: Gregorio Corona DO Procedure: Preop Diagnosis ?Left?distal?radius fracture ? Procedure: Post-op diagnosis: Same, 4 part intra-articular Procedure done: Left?distal?radius open reduction internal fixation, 4-part intra-articular Implants: ?Arthrex left 3-hole standard volar locking plate Combination of locking and nonlocking screws 2.7 mm?distal Combination of locking and nonlocking screws 3.5 mm proximal Surgeon: Gregorio Corona DO Anesthesia: General and nerve Block (Regional) Estimated blood loss: 5mL Tourniquet time: 40 minutes IV fluids: See anesthesia record Complications: None Findings: See operative report narrative Condition: stable Disposition: same day Brief History: Patient is a 79-year-old female who presented to my office for a [id number] left?distal?radius fracture.? Patient has significant comminution and shortening as well as dorsal angulation patient active and at this point time through shared decision making patient like to proceed with a left?distal?radius?ORIF.? We had a detailed discussion in the office about nonoperative and operative intervention.? At this point time I feel through shared decision? best option would be open reduction internal fixation she is active and already has a considerable deformity??as result through shared decision making patient would like to proceed with?ORIF?left?distal?radius fracture.? Detail the risk benefits complication alternatives to treatment option.? Understanding risk for surgery patient elects to proceed with surgical intervention.? All questions been answered at this time. Procedure: Patient seen and evaluated in the preoperative holding area.? Consent reviewed and signed with patient.? Correct extremities were marked and consent was reviewed and signed.? Patient was seen and evaluated by anesthesia department.? Underwent regional anesthesia. Once cleared for surgery pt was taken back to the operative suite.? Patient was then transported into the operative suite and kept on the OR gurney, all bony prominences well-padded patient was appropriate secured to bed in supine position.? An armboard was applied to the left upper extremity.? The left upper extremity had a nonsterile tourniquet applied.? Patient subsequently was then prepped and draped in standard orthopedic fashion she underwent anesthesia per the anesthesia department.? A final timeout was performed.? Patient received appropriate preoperative antibiotics. Esmarch was used exsanguinate the left upper extremity and tourniquet was insufflated to 250 mmHg. A standard modified FCR volar approach was performed to the left?distal?radius.? Sharp scalpel incision through skin and subcutaneous tissue.? I then switched to Littler dissection scissors identify the FCR tendon releases out of the sheath both proximally and?distally mobilized the tendon ulnarly and then subsequently incised the floor of the FCR tendon sheath with care to just incise the floor.? I then bluntly sweep the FPL tendon muscle belly ulnarly and placed blunt self- retaining retractor.? At this point time I direct visualization of the pronator quadratus which was incised in standard L fashion off the?radial and?distal?border in the?distal?radius and fracture site was scraped clean of interposed muscle belly.? I then identified the 4part intra- articular?distal?radius fracture.? This was subsequently opened above and freed of interposing muscle belly as well as periosteum and fracture hematoma.? I did have to utilize my [place] which was placed through the fracture pattern and disengage the fracture and performed manual manipulation and anatomic reduction of the?distal?radius fracture.? ?Once satisfied with reduction and had appropriate anatomic reduction of the volar cortex.? This was confirmed with mini C arm in multiple orthogonal imaging.? At this point time? I selected a Arthrex anatomic?distal?radius plate utilizing a standard 3-hole plate which would have appropriate spread?distally.? This was then placed up to the?distal?radius while maintaining my reduction, pins were placed?distally and proximally to confirm appropriate placement of the plate along the?distal?radius.? Minor adjustments were made and once I was satis fied I then subsequently drilled a bicortical 3.5 screw proximally in the oblong hole to allow for appropriate sliding of the?distal?radius plate appropriately to perfect position on the?distal?radius.? This had excellent fixation and purchase and brought the plate to bone.? While maintaining my reduction I then confirmed in multiple orthogonal imaging that my plate was in appropriate position.? Once satisfied with my position I then subsequently placed the peek targeting guide on the?distal?locking screws with Arthrex.? The locking guide was then subsequently loaded and I subsequently drilled and placed a fully threaded cortical screw to compress the plate to bone for the?distal?fracture fragment.? This was performed with plan to then remove this and placed a shorter locking screw had bicortical fixation with excellent purchase and appropriate reduction of my volar tilt and bringing plate to bone of the?distal?fragment and plate.? Once I was satisfied with my plate position as well as reduction of the?distal?radius which was confirmed on AP oblique and lateral imaging I then subsequently drilled measured and placed 4 locking screws around this cortical screw.? Then I subsequently removed the cortical screw and placed a shorter locking screw that did not penetrate the dorsal cortex.?? This completed my?distal?fixation.? I did utilize mini C arm to confirm appropriate placement of the screws these were all within the?distal?radius and no joint involvement within the?radiocarpal joint or the DRUJ.? These had appropriate subchondral support and maintenance of reduction and fixation of the?distal?radius fracture.? ?I then turned my attention proximally and then I screwed in the locking guides for my final to screws proximally these were then subsequently drilled measured and appropriate length locking screws were then placed proximally with excellent fixation and locking technology into the plate.? This completed my construct.? The peek guide was subsequently removed and final imaging of the left?distal?radius open reduction internal fixation was taken of AP lateral as well and is orthogonal imaging.? I then took a inclination view which showed my?radial styloid screw was out of the penetration of the joint.? All my?distal?screws were appropriate length did not penetrate dorsal cortex and did not penetrate the joint.? This completed my fixation.? Smooth wrist range of motion was then noted with no evidence of clicking. Wrist was then taken through pronation supination and stressed the DRUJ which was found to be stable.? The wound was then thoroughly irrigated.? Tourniquet was then subsequently deflated.? Hemostasis satisfactory with bipolar electrocautery.? I then subsequently placed interrupted 3-0 Vicryl sutures for subcutaneous tissue and then subsequently placed a nylon the skin for closure.? Incision was then dressed with Xeroform 4 x 4's Kerlix cast padding and a volar Ortho-Glass splint was then applied with Tacho wrap and placed in a sling.? Disposition: Patient taken to PACU in stable condition recovering well receive appropriate discharge instructions as well as pain medication postoperatively.? Maintain splint until follow-up.? Nonweightbearing to operative upper extremity We will follow-up with Dr. Corona in the office in 2 weeks.? If any questions or concerns feel free to contact the office.
--- NOTE | 2024-10-02 12:41 | SUR.PHASEII ---
GOOD CAP REFILL SENSATION AND ROM OF LEFT HAND FINGERS.
--- NOTE | 2024-10-02 13:30 | ANE.PACU2 ---
Inpatient post-anesthesia follow up: Airway intact: Yes Vital signs: Temperature 97.9 F Pulse Rate 62 Respiratory Rate 16 Blood Pressure 140/60 Pulse Oximetry 92 Oxygen Delivery Me thod Room Air Oxygen Flow Rate 3 Fraction of Inspir ed Oxygen Hydration adequate: Yes Nausea and vomiting: No Pain level: 1 Mental status: Baseline
[2024-10-03 05:54] LABS: Glucose Point of Care 120 mg/dL (70-110)
== END 2024-10-02 13:30 | disposition home or self-care (01) ==
PROVIDERS: PCP Nurse Practitioner; Visit Provider Student in an Organized Health Care Education/Training Program
PROC: (CPT 25609; principal; 2024-10-02 10:30)
DX: S52.572A Other intraarticular fracture of lower end of left radius, initial encounter for closed fracture (principal); W19.XXXA Unspecified fall, initial encounter; Z95.0 Presence of cardiac pacemaker; E11.65 Type 2 diabetes mellitus with hyperglycemia; Z79.84 Long term (current) use of oral hypoglycemic drugs; M19.90 Unspecified osteoarthritis, unspecified site; Z79.82 Long term (current) use of aspirin; I11.0 Hypertensive heart disease with heart failure; I50.9 Heart failure, unspecified; M81.0 Age-related osteoporosis without current pathological fracture; E78.5 Hyperlipidemia, unspecified
CPT/HCPCS: 25609; 36416; 73100; 76000; 82962; C1713; J0131; J0690; J1100; J1885; J2405; J2704; J3010; J7030

== ENCOUNTER → 2024-10-15 09:23 | Outpatient (BNVA) | payer MEDICARE, SELFPAY | PROVIDERS: PCP Nurse Practitioner; Visit Provider Internal Medicine Rheumatology | DX: M05.79 Rheumatoid arthritis with rheumatoid factor of multiple sites without organ or systems involvement (principal); Z79.899 Other long term (current) drug therapy; Z71.89 Other specified counseling; M81.0 Age-related osteoporosis without current pathological fracture | CPT/HCPCS: 99214 ==

== ENCOUNTER 2024-10-23 06:00 | Outpatient (CLI) | payer MEDICARE, SELFPAY | END 2024-10-23 23:59 | disposition home or self-care (01) | LOC: SOT 10-29 07:13 | PROVIDERS: Visit Provider Physician Assistant | DX: Z46.89 Encounter for fitting and adjustment of other specified devices (principal); S52.502D Unspecified fracture of the lower end of left radius, subsequent encounter for closed fracture with routine healing; X58.XXXD Exposure to other specified factors, subsequent encounter | CPT/HCPCS: 99024; L3908 ==

== ENCOUNTER → 2024-10-23 14:14 | Outpatient (BNVA) | payer MEDICARE, SELFPAY | PROVIDERS: PCP Nurse Practitioner; Visit Provider Physician Assistant | DX: S52.502D Unspecified fracture of the lower end of left radius, subsequent encounter for closed fracture with routine healing; X58.XXXD Exposure to other specified factors, subsequent encounter; Z98.890 Other specified postprocedural states | CPT/HCPCS: 73110 ==

== ENCOUNTER → 2024-11-03 12:23 | Outpatient (BNVA) | payer MEDICARE, SELFPAY | PROVIDERS: PCP Nurse Practitioner; Visit Provider Internal Medicine | DX: I11.0 Hypertensive heart disease with heart failure (principal); I50.9 Heart failure, unspecified; E78.5 Hyperlipidemia, unspecified; E11.65 Type 2 diabetes mellitus with hyperglycemia; Z95.0 Presence of cardiac pacemaker; Z95.3 Presence of xenogenic heart valve; Z79.84 Long term (current) use of oral hypoglycemic drugs | CPT/HCPCS: 99214 ==

== ENCOUNTER → 2024-11-14 08:59 | Outpatient (BNVA) | payer MEDICARE, SELFPAY | PROVIDERS: PCP Nurse Practitioner; Visit Provider Physician Assistant | DX: S52.502D Unspecified fracture of the lower end of left radius, subsequent encounter for closed fracture with routine healing; X58.XXXD Exposure to other specified factors, subsequent encounter | CPT/HCPCS: 73110 ==

== ENCOUNTER 2024-11-14 09:38 | Outpatient (CLI) | payer MEDICARE, SELFPAY | END 2024-11-14 09:39 | disposition home or self-care (01) | LOC: SPT 09:39 | PROVIDERS: PCP Nurse Practitioner; Visit Provider Physician Assistant | DX: Z46.89 Encounter for fitting and adjustment of other specified devices (principal); S52.502S Unspecified fracture of the lower end of left radius, sequela; X58.XXXS Exposure to other specified factors, sequela | CPT/HCPCS: 99024; L3908 ==

== ENCOUNTER → 2024-11-27 11:58 | Outpatient (BNVA) | payer MEDICARE, SELFPAY | PROVIDERS: PCP Nurse Practitioner; Visit Provider Nurse Practitioner | DX: E11.65 Type 2 diabetes mellitus with hyperglycemia; E55.9 Vitamin D deficiency, unspecified; I10 Essential (primary) hypertension; J06.9 Acute upper respiratory infection, unspecified | CPT/HCPCS: 80053; 80061; 82306; 82607; 83036; 84443 ==

== ENCOUNTER → 2024-12-12 08:46 | Outpatient (BNVA) | payer MEDICARE, SELFPAY | PROVIDERS: PCP Nurse Practitioner; Visit Provider Physician Assistant | DX: S52.502A Unspecified fracture of the lower end of left radius, initial encounter for closed fracture (principal); X58.XXXA Exposure to other specified factors, initial encounter | CPT/HCPCS: 73110; 99024 ==

== ENCOUNTER → 2025-01-12 10:03 | Outpatient (BNVA) | payer MEDICARE, SELFPAY | PROVIDERS: PCP Nurse Practitioner; Visit Provider Nurse Practitioner | DX: M47.896 Other spondylosis, lumbar region (principal) | CPT/HCPCS: 72100 ==

== ENCOUNTER → 2025-02-12 10:44 | Outpatient (BNVA) | payer MEDICARE, OTHER, SELFPAY | PROVIDERS: PCP Nurse Practitioner; Visit Provider Internal Medicine Rheumatology | DX: M05.79 Rheumatoid arthritis with rheumatoid factor of multiple sites without organ or systems involvement (principal); Z79.899 Other long term (current) drug therapy; Z71.89 Other specified counseling; M81.0 Age-related osteoporosis without current pathological fracture | CPT/HCPCS: 99214 ==

== ENCOUNTER → 2025-02-26 10:55 | Outpatient (BNVA) | payer MEDICARE, SELFPAY | PROVIDERS: PCP Nurse Practitioner; Visit Provider Nurse Practitioner | DX: Z79.899 Other long term (current) drug therapy (principal); E53.8 Deficiency of other specified B group vitamins; E11.65 Type 2 diabetes mellitus with hyperglycemia | CPT/HCPCS: 80048; 80076; 82607; 83036; 85025; 85651; 86140 ==

== ENCOUNTER → 2025-05-04 13:39 | Outpatient (BNVA) | payer MEDICARE, SELFPAY | PROVIDERS: PCP Nurse Practitioner; Visit Provider Internal Medicine | DX: I35.0 Nonrheumatic aortic (valve) stenosis (principal); I11.0 Hypertensive heart disease with heart failure; I50.9 Heart failure, unspecified; R01.1 Cardiac murmur, unspecified; E78.5 Hyperlipidemia, unspecified; E11.65 Type 2 diabetes mellitus with hyperglycemia; Z79.84 Long term (current) use of oral hypoglycemic drugs; Z95.0 Presence of cardiac pacemaker; Z95.2 Presence of prosthetic heart valve; Z79.82 Long term (current) use of aspirin | CPT/HCPCS: 99213 ==

== ENCOUNTER → 2025-05-27 12:20 | Outpatient (BNVA) | payer MEDICARE, SELFPAY | PROVIDERS: PCP Nurse Practitioner; Visit Provider Internal Medicine Rheumatology | DX: M05.79 Rheumatoid arthritis with rheumatoid factor of multiple sites without organ or systems involvement (principal); Z79.899 Other long term (current) drug therapy; Z71.85 Encounter for immunization safety counseling; M81.0 Age-related osteoporosis without current pathological fracture | CPT/HCPCS: 36415; 80076; 82565; 85025; 85651; 86140; 99214 ==

== ENCOUNTER → 2025-06-01 14:45 | Outpatient (BNVA) | payer MEDICARE, SELFPAY | PROVIDERS: PCP Nurse Practitioner; Visit Provider Internal Medicine Rheumatology | DX: M25.552 Pain in left hip (principal); M70.72 Other bursitis of hip, left hip | CPT/HCPCS: 20610; J1010; J9999 ==

== ENCOUNTER → 2025-06-02 16:31 | Outpatient (BNVA) | payer MEDICARE, SELFPAY | PROVIDERS: PCP Nurse Practitioner; Visit Provider Nurse Practitioner | DX: E55.9 Vitamin D deficiency, unspecified (principal); E78.5 Hyperlipidemia, unspecified; E11.65 Type 2 diabetes mellitus with hyperglycemia; E53.8 Deficiency of other specified B group vitamins | CPT/HCPCS: 80053; 80061; 82043; 82306; 82607; 83036 ==

== ENCOUNTER → 2025-07-30 09:35 | Outpatient (BNVA) | payer MEDICARE, SELFPAY | PROVIDERS: PCP Nurse Practitioner; Visit Provider Nurse Practitioner | DX: M25.572 Pain in left ankle and joints of left foot (principal); M25.472 Effusion, left ankle | CPT/HCPCS: 73610 ==

== ENCOUNTER → 2025-08-12 12:59 | Outpatient (BNVA) | payer MEDICARE, SELFPAY | PROVIDERS: PCP Nurse Practitioner; Visit Provider Internal Medicine | DX: Z45.018 Encounter for adjustment and management of other part of cardiac pacemaker (principal) | CPT/HCPCS: 93296 ==

== ENCOUNTER → 2025-08-25 14:45 | Outpatient (BNVA) | payer MEDICARE, SELFPAY | PROVIDERS: PCP Nurse Practitioner; Visit Provider Nurse Practitioner | DX: E11.65 Type 2 diabetes mellitus with hyperglycemia (principal) | CPT/HCPCS: 80048; 80076; 82565; 83036; 85025; 85651; 86140 ==

== ENCOUNTER → 2025-11-02 12:06 | Outpatient (BNVA) | payer MEDICARE, SELFPAY | PROVIDERS: PCP Nurse Practitioner; Visit Provider Internal Medicine | DX: I11.0 Hypertensive heart disease with heart failure (principal); I50.9 Heart failure, unspecified; R01.1 Cardiac murmur, unspecified; Z95.0 Presence of cardiac pacemaker; E78.5 Hyperlipidemia, unspecified; E11.65 Type 2 diabetes mellitus with hyperglycemia; Z95.2 Presence of prosthetic heart valve; Z79.84 Long term (current) use of oral hypoglycemic drugs | CPT/HCPCS: 99213 ==

== ENCOUNTER → 2025-11-18 13:19 | Outpatient (BNVA) | payer MEDICARE, SELFPAY | PROVIDERS: PCP Nurse Practitioner; Visit Provider Internal Medicine | DX: Z45.018 Encounter for adjustment and management of other part of cardiac pacemaker (principal) | CPT/HCPCS: 93296 ==